=== PATIENT | male | born 1950 ===

== ENCOUNTER 2017-04-05 14:18 | Emergency (ER) | payer SELFPAY ==
[2017-04-05 15:18] VITALS: BP 137/74
--- NOTE | 2017-04-05 15:44 | RAD ---
Indication: Medial RIGHT ankle pain and edema for 2 days without known injury. Comparison: No relevant prior exams available on the [facility] PACS for comparison. Technique: AP, mortise, and lateral views RIGHT ankle. Report: Nonfocal soft tissue swelling and suggestion of small talocrural joint effusion. Negative for fracture, osteochondral lesion, or suspicious focal osseous lesion. No significant osteophytosis. Negative for joint space narrowing. IMPRESSION: Nonfocal soft tissue swelling and suggestion of small talocrural joint effusion without additional radiographic finding.
--- NOTE | 2017-04-05 15:53 | UC ---
Lower Extremity/Ankle HPI - HPI Summary HPI Summary: Pt presents with right ankle pain for 2 days. He tells me that he woke up and noticed the inside of his right ankle was painful when he went to walk. He denies injury, but says that a few days prior he was doing some home exercises which he normally does not do. Early today he took some ibuprofen which is helping. Denies fever, chills, SOB, chest pain, numbness, or tingling. - History of Current Complaint Chief Complaint: UCLowerExtremity Stated Complaint: ANKLE PAIN Time Seen by Provider: 04/05/17 15:43 Hx Obtained From: Patient Onset/Duration: Sudden Onset Severity Initially: Moderate Severity Currently: Moderate Pain Intensity: 7 Pain Scale Used: 0-10 Numeric Aggravating Factor(s): Standing, Ambulation Alleviating Factor(s): Rest, Elevation Able to Bear Weight: Yes - Allergies/Home Medications Allergies/Adverse Reactions: Allergies Allergy/AdvReac Type Severity Reaction Status Date / Time No Known Allergies Allergy Verified 04/05/17 15:18 Home Medications: Home Medications Aspirin TAB* [Aspirin 325 MG TAB*] 650 mg PO ONCE PRN 04/05/17 [History Confirmed 04/05/17] Ibuprofen TAB* [Advil TAB*] 200 mg PO ONCE PRN 04/05/17 [History Confirmed 04/05] PMH/Surg Hx/FS Hx/Imm Hx Previously Healthy: Yes - Surgical History Surgical History: Yes Surgery Procedure, Year, and Place: LEFT NEPHRECTOMY 2004, TONSILLECTOMY - Family History Known Family History: Positive: None - Social History Occupation: Employed Full-time Lives: Alone Alcohol Use: Weekly Alcohol Amount: 5 BOTTLES BEER/WEEK Substance Use Type: None Smoking Status (MU): Never Smoked Tobacco Review of Systems Constitutional: Negative Skin: Negative Respiratory: Negative Cardiovascular: Negative Neurovascular: Negative Musculoskeletal: Decreased ROM - Right ankle, Other: - Right ankle pain Neurological: Negative Psychological: Negative All Other Systems Reviewed And Are Negative: Yes Physical Exam Triage Information Reviewed: Yes Appearance: Well-Appearing, No Pain Distress, Well-Nourished Vital Signs: Initial Vital Signs Temp 97.8 F 04/05/17 15:14 Pulse 105 04/05/17 15:14 Resp 18 04/05/17 15:14 BP 137/74 04/05/17 15:14 Pulse Ox 99 04/05/17 15:14 Vital Signs Reviewed: Yes Neck: Positive: Supple, No Lymphadenopathy Respiratory: Positive: Lungs clear, Normal breath sounds, No respiratory distress Cardiovascular: Positive: RRR, No Murmur, Pulses Normal - Right DP and TP, Brisk Capillary Refill - Right foot Musculoskeletal: Positive: Strength Intact - Right foot/ankle, ROM Limited @ - Right ankle - pain with eversion, Edema @ - medial malleolus - mild, Other: - Mildly TTP over right medial malleolus. No obvious bony deformities or increased laxity. Neurological: Positive: Alert, Other: - Sensations intact right foot and all toes Psychological: Positive: Age Appropriate Behavior Skin: Positive: Other - No erythema or ecchymosis right ankle. Negative: rashes Lower Extremity Course/Dx - Course Course Of Treatment: Ankle XR: IMPRESSION: Nonfocal soft tissue swelling and suggestion of small talocrural joint effusion without additional radiographic finding. Suspect ankle sprain - gel splint, DIAZ wrap, and ibuprofen prn. F/u with ortho if symptoms persist >10 days - Differential Dx/Diagnosis Provider Diagnoses: Right ankle sprain Discharge - Discharge Plan Condition: Stable Disposition: HOME Patient Education Materials: Ankle Sprain (DC) Referrals: Den German MD [Primary Care Provider] - Justin Leiva MD [Medical Doctor] - If Needed Additional Instructions: If you develop a fever, shortness of breath, chest pain, new or worsening symptoms - please call your PCP or go to the ED. Your blood pressure was high at todays visit. Please see your primary provider within 4 weeks for recheck and re-evaluation. 1) Please use the gel ankle splint and DIAZ wrap as much as possible over the next 24-48 hours. 2) Rest, Ice, and elevate your ankle as much as possible 3) May take 800mg ibuprofen every 6-8 hours as needed for pain. 4) If your symptoms worsen or persist - please call Orthopedics at the number below to schedule a follow up appointment.
== END 2017-04-05 16:08 | disposition home or self-care (01) ==
LOC: UCEAST 14:18
DX: S93.401A Sprain of unspecified ligament of right ankle, initial encounter (principal); X58.XXXA Exposure to other specified factors, initial encounter; Y93.B9 Activity, other involving muscle strengthening exercises; Y92.9 Unspecified place or not applicable; Z90.5 Acquired absence of kidney
CPT/HCPCS: 99213; G0463